=== PATIENT | female | born 1965 | race Native Hawaiian/Other Pacific Islander ===

== ENCOUNTER 2017-09-01 19:48 | Observation (INO) | payer BC ==
[~2017-09-01] VITALS: Ht 170.2 cm; Wt 84.5 kg
[2017-09-01 20:10] VITALS: BP 179/101; TEMP 98
[2017-09-01 20:14] LABS: PLATELET COUNT 338 K/uL (152-353)
[2017-09-01 20:30] VITALS: BP 141/79
[2017-09-01 20:32] LABS: POTASSIUM 3.3 mmol/L (3.6-5.2); SODIUM 136 mmol/L (136-145)
[2017-09-01 21:04] LABS: PARTIAL THROMBOPLASTIN TIME 25.3 SECONDS (24.5-33.6)
[2017-09-02 01:35] VITALS: BP 125/67; TEMP 97.8; Ht 170.2 cm; Wt 84.5 kg
--- NOTE | 2017-09-02 01:59 | NUR ---
2319 RECD TO FLOOR VIA WC TO ROOM 1112, SPOUSE AT BEDSIDE, C/O IV TO LEFT AC VERY PAINFULL, CHANGED SITE TO RIGHT HAND. ORIENTED PATIENT & SPOUSE TO ROOM, SHANKAR ANY C/O AT PRESENT
[2017-09-02 04:00] VITALS: BP 118/66; TEMP 98.4
[2017-09-02 08:00] VITALS: BP 112/61; TEMP 98
[2017-09-02] MEDS ORDERED: PHENELX32 PO (11:41)
[2017-09-02] MEDS ORDERED: MEDROL DOSEPAK4 MG OR (11:41)
--- NOTE | 2017-09-02 15:00 | NUR ---
IV D/C'D. D/C INSTRUCTIONS GIVEN. PT HAS NO FUTHER QUESTIONS. PT AMBULATED OUT AT THIS TIME. NO PROBLEMS NOTED.
== END 2017-09-02 15:15 | disposition home or self-care (01) ==
LOC: ED 19:48 → MED/SURG 22:33
DX: R07.89 Other chest pain (principal); I10 Essential (primary) hypertension
CPT/HCPCS: 36415; 80053; 82550; 84484; 85027; 85610; 85730; 93005; 96372; 99220; 99283; G0378; J1650